=== PATIENT | female | born 1980 | race Caucasian/White ===

== ENCOUNTER → 2019-04-03 13:09 | Outpatient (CLI) | payer OTHER, SELFPAY ==
[2019-04-06 12:42] LABS: HPV APTIMA, High Risk Negative (Negative)
== END ==
PROVIDERS: Family Provider Internal Medicine; PCP Internal Medicine; Visit Provider Obstetrics & Gynecology
DX: Z12.4 Encounter for screening for malignant neoplasm of cervix (principal)
CPT/HCPCS: 87624; 88175; G0145

== ENCOUNTER 2019-09-05 14:54 | Emergency (ER) | payer OTHER, SELFPAY ==
[2019-09-05 14:55] VITALS: BP 160/85; PULSE 82; RESP 15; TEMP 37.1; O2SAT 100; BMI 24.3
--- NOTE | 2019-09-05 15:21 | CT_ITS ---
STUDY: CT ABDOMEN AND PELVIS WITH CONTRAST REASON FOR EXAM: Female, 39 years old. Right sided abdominal pain for 7 days. History of ovarian tumor removal, gastric bypass and cholecystectomy. RADIATION DOSAGE (If Supplied By Facility): CTDIvol = ( 10.9 ) mGy, DLP = ( 633.11 ) mGycm TECHNIQUE: Transaxial images were obtained from the dome of the diaphragm to the symphysis pubis without oral contrast. IV 100mL Isovue-300 was administered. Sagittal and coronal images were reconstructed. Individualized dose optimization techniques were used for this CT. COMPARISON: August 31, 2015. FINDINGS: The visualized lung bases are unremarkable. The visualized portions of the heart are within normal limits. Normal liver. There are surgical clips in the gallbladder fossa consistent with a prior cholecystectomy. There is a benign calcified granuloma of the spleen. Normal pancreas. Normal bilateral adrenal glands. Normal right kidney. There is a large cyst in the lower pole of the left kidney measuring 6.8 x 6.0 x 7.7 cm in size. There is no adjacent 3.3 x 3.0 x 2.8 cm cyst. Left kidney is otherwise unremarkable. Evidence of gastric bypass surgery. Normal small intestine. Normal colon. The appendix is visualized and appears normal. Normal abdominal aorta. Normal inferior vena cava. Normal retroperitoneum. Normal urinary bladder. The uterus is anteverted and tilted to the left. There is a tubal ligation clip on the right. There is a 1.6 cm right ovarian cyst. Left ovary is not seen. There is minimal free fluid in posterior cul-de-sac. There is no pelvic lymphadenopathy. No free air is seen within the peritoneal cavity. Normal abdominal wall. There is flattening of the lumbar lordosis with minimal endplate spondylosis. CT/Abdomen/Pelvis W IV Cont ONLY IMPRESSION: 1. Gastric bypass surgery not seen on previous study. 2. Right ovarian cyst. The left ovary is no longer seen. 3. Minimal free fluid in the posterior caudal sac thought to be physiologic. There is resolution of the diffuse ascites seen on the prior exam. 4. Stable left renal cyst. 5. Stable splenic calcified granulomata. 6. No acute intra-abdominal process or other major interval change. Electronically Signed: Merlin Lindsey DO at 16:46 EST Tel [phone], Service support ,
--- NOTE | 2019-09-05 15:22 | ED.VIS.GEN ---
History of Present Illness Chief Complaint: Abd Pain Informant: Patient Narrative: Patient presents the emergency department with right-sided abdominal pain. Symptoms have been intermittent since last weekend. She states that when it comes it is a sharp burning pain. She notes radiation to her back. She notes nausea but no vomiting. No change in bowel movements. She notes the urine has been darker than normal. 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 She states she is concerned for kidney stones. She denies any weight loss weight gain. No fevers. No dysuria or frequency. She denies any rashes. Pain is not exacerbated by walking or movement. She states the pain seems to have a mind of its own in terms of its coming and going. For the past several hours however it is been more constant. She called her doctor but cannot be seen until next week. Past Medical History - Allergies and Home Meds Allergies/Adverse Reactions: Allergies No Known Allergies Allergy (Verified 09/05/19 14:57) Primary Care Physician: Amber Barnett [NON-STAFF] - Smoking Status: Former smoker Review of Systems General: Denies: Chills, Fever, Sweats Eyes: Denies: Visual changes - bilaterally, Diplopia ENT: Denies: Rhinorrhea, Sore throat Cardiovascular: Denies: Chest pain, Palpitations Respiratory: Denies: Dyspnea, Cough, Dyspnea on exertion Gastrointestinal: Reports: Abdominal pain, Nausea. Denies: Vomiting, Diarrhea, Constipation, Melena, Hematochezia Genitourinary: Denies: Dysuria, Hematuria, Frequency Musculoskeletal: Denies: Myalgias, Arthralgias, Neck pain, Back pain, Swelling, Extremity Pain Skin: Denies: Rash, Abscess, Abrasions, Wounds Neurological: Denies: Headache, Weakness, Numbness Physical Exam Vital Signs/Narrative: Vital Signs Temp Pulse Resp BP Pulse Ox 09/05/19 14:55 98.7 F 82 15 160/85 H 100 Inital Vital Signs reviewed: Yes General: Well nourished, Well developed, No Acute Distress Head: Normocephalic, Atraumatic Eyes: Perrl, EOMI ENT: Moist mucous membranes, No rhinorrhea Neck: Supple, Nontender Cardiovascular: Regular rate, Regular rhythm, No murmurs Respiratory: No distress, CTA bilaterally, Chest nontender Abdomen: Soft, Nontender, Nondistended, Normal bowel sounds, Tender - Mild tenderness to palpation in the right side of the abdomen. Skin exam appears normal - specifically no vesicular rashes seen. Back: Nontender, Normal Inspection Extremities: Nontender, No edema Skin: Normal color, No rash Neurological: Alert, Oriented x3, Cranial nerves II-XII grossly intact, Normal Strength, Normal Sensation Psychological: Normal affect, Normal Mood Diagnostic/Tx/Re-eval - Medical Decision Making Patient's blood and urine testing was normal. CT the abdomen pelvis reveals a right ovarian cyst. Nonvisualization of the left ovary. There is some minimal free fluid in the cul-de-sac thought to possibly be physiologic. There is stable left renal cyst. Given the patient's history and her findings a pelvic ultrasound was obtained to better characterize the right ovarian cyst and to ensure ovarian blood flow. This demonstrated 2 cyst on the right ovary. 1.4 x 1.4 x 1 cm and 1.9 x 1.7 x 1.7 cm. No pelvic free fluid. Noted minimal internal debris. Normal arterial and venous vascularity. Patient will be discharged home with instructions to follow-up with [facility]. Return if worsening or concerns. ED Disposition - Plan for ED Patient: Disposition: Home or Assisted Living Diagnosis: Ovarian cyst Instructions: Ovarian Cyst Prescriptions: Ibuprofen [Motrin] 800 mg PO TID PRN PRN #20 tab PRN Reason: Pain Prescription Printed Hydrocodone Bitart/Apap 5-325 [[place] 5MG-325MG] 1 tab PO Q6H PRN PRN 3 Days #10 tab PRN Reason: Pain Prescription Printed Referrals: Estefany Bernstein MD [STAFF PHYSICIAN] - (call to arrange follow up)
[2019-09-05 15:44] LABS: Mucous, Urine 0 SEEN /hpf (<or=2+); Red Blood Cells-Urine 0 SEEN /hpf (0-5)
[2019-09-05 16:00] LABS: Absolute Lymphocyte Count 2.09 X10^3/uL (0.83-4.51); Absolute Neutrophil Count 4.6 X10^3/uL (2.0-7.7); Basophil# 0.01 X10^3/uL; Basophil% 0.1 % (0-1); Eosinophil# 0.02 X10^3/uL; Eosinophils% 0.3 % (0-5); Hematocrit 42.6 % (37-47); Hemoglobin 14.4 g/dL (12.0-15.0); Lymphocyte # 2.09 X10^3/ul (4.0); Mean Corp Hgb Conc 33.8 g/dL (32-36); Mean Corpuscular Hgb 30.3 pg (27.0-32.0); Mean Corpuscular Volume 89.7 fL (81-99); Monocyte# 0.42 X10^3/uL; Monocyte% 5.8 % (0-10); NRBC Flagged by Analyzer 0 % (0-5); Neutrophil # 4.64 X10^3/uL (2.7-7.7); Neutrophil % 64.5 % (47-70); Platelet Count 225 K/mm3 (150-450); RBC Distribution Width CV 11.9 % (11.6-14.6); RBC Distribution Width SD 38.9 fl (35.1-43.9); Red Blood Count 4.75 M/mm3 (4.2-5.4); White Blood Count 7.2 K/mm3 (4.4-11.0)
[2019-09-05] MEDS: Ondansetron 4 MG/2 ML Vial IV (16:00)
[2019-09-05] MEDS: Ketorolac 30 MG/ML Syringe IV (16:00)
[2019-09-05 16:05] LABS: Internal QC Validated? YES +Cl - CLEAR BKGD; Pregnancy, Urine Negative Negative
[2019-09-05 16:09] LABS: Color, Urine Yellow (Yellow); Glucose, Dipstick Normal (Normal); Ketone-Dipstick Negative (Negative); Leukocyte Esterase-Dipstick 25 /ul (Negative); Nitrite-Dipstick Negative (Negative); Occult Blood-Urine Negative /ul (Negative); Protein-Dipstick Negative (Negative); Urine Bilirubin Dipstick Negative (Negative); Urine Clarity Sl. Cloudy (Clear); Urine Urobilinogen Normal (Normal)
[2019-09-05 16:16] LABS: AST(SGOT) 11 U/L (15-37); Alanine Aminotransfer ALT/SGPT 22 U/L (13-56); Alkaline Phosphatase 103 U/L (45-117); Anion Gap 6 (5-15); BUN 16 mg/dL (7-18); BUN/Creat Ratio 19.3 RATIO (10-20); Calcium,Total 9.1 mg/dL (8.5-10.1); Chloride 107 mmol/L (98-107); Creatinine, Serum 0.83 mg/dL (0.55-1.02); EST Glomerular Filtration Rate 80 mL/min (>60); Est Glom Filt Rate - Afr Amer 97 mL/min (>60); Globulin 3.9 g/dL (2.2-4.2); Glucose 84 mg/dL (74-106); Lipase 393 U/L (73-393); Potassium 3.9 mmol/L (3.5-5.1); Protein, Total 7.9 g/dL (6.4-8.2); Sodium Level 140 mmol/L (136-145)
[2019-09-05 16:18] LABS: Bacteria 1+ /hpf (None Seen); Squamous Epithelial Cells - UA 5-10 SEEN /hpf (5-10); White Blood Cells 0-5 SEEN /hpf (0-5)
--- NOTE | 2019-09-05 17:15 | US_ITS ---
STUDY: ULTRASOUND OF THE FEMALE PELVIS - COMPLETE REASON FOR EXAM: Female, 39 years old. Moderate right lower quadrant pain for one week. LMP: August 22, 2019. TECHNIQUE: Transvaginal TECHNICAL QUALITY: Adequate. COMPARISON: None. FINDINGS: The uterus is anteverted and is in a midline position. The uterus measures 8.5 x 6.4 x 4.9 cm. Normal uterine cervix. The endometrium measures 13 mm in thickness, and is hyperechoic. There is no demonstrated endometrial mass. There is no demonstrated myometrial mass. I.U.D. - The patient does not have an I.U.D. The right ovary is visualized. The right ovary measures 2.8 x 2.7 x 1.8 cm. There are 2 cysts measuring 1.4 x 1.4 x 1.0 cm and 1.9 x 1.7 x 1.7 cm. There is minimal internal debris. There is no visualized right adnexal mass or complex lesion. There is normal arterial and normal venous vascularity. The left ovary is absent consistent with surgical resection.. There is no fluid in the cul-de-sac. Polycystic ovary disease: No. US/Transvaginal Non- IMPRESSION: 1. Prominent endometrium. Correlate with patient''s menstrual cycle. Uterus is otherwise unremarkable. 2. Absent left ovary. 3. Right ovarian cysts. Electronically Signed: Merlin Lindsey DO at 17:54 EST Tel [phone], Service support ,
[2019-09-05 18:28] VITALS: PULSE 68; RESP 16; O2SAT 98
== END 2019-09-05 18:29 | disposition home or self-care (01) ==
PROVIDERS: Emergency Provider Emergency Medicine; PCP Internal Medicine
DX: N83.201 Unspecified ovarian cyst, right side (principal); N28.1 Cyst of kidney, acquired; Z87.891 Personal history of nicotine dependence; Z90.49 Acquired absence of other specified parts of digestive tract; Z98.84 Bariatric surgery status
CPT/HCPCS: 74177; 76830; 80053; 81001; 81025; 83690; 85025; 93976; 96374; 96375; 99283; Q9967; A4216; J2405

== ENCOUNTER → 2021-03-16 07:09 | Outpatient (CLI) | payer OTHER, SELFPAY ==
--- NOTE | 2021-03-16 07:38 | MRI_ITS ---
STUDY: MRI RIGHT KNEE REASON FOR EXAM: Female, 40 years old. Medial pain. TECHNIQUE: Standardized fat and water weighted pulse sequences were obtained in all 3 orthogonal planes. COMPARISON: None. FINDINGS: Deep chondral fissure of the patellar apex (axial image 12 series 2). Lateral compartment articular cartilage preserved. Medial compartment grade grade 2/3 cartilage loss. No acute fracture, dislocation or bone destruction. Lateral meniscus intact. Medial meniscus intact. Mild anterior cruciate ligament degeneration without tear. Normal posterior cruciate ligament. Trace joint effusion. No popliteal cyst. No significant soft tissue swelling. Mild quadriceps and Hoffa''s fat pad edema. Normal medial collateral ligamentous complex (MCL). Normal distal semimembranosus, gracilis and semitendinosus tendons. Normal proximal tibiofibular articulation. Normal lateral collateral (fibular) ligament. Normal popliteus tendon. Normal biceps femoris tendon. Normal medial and lateral patellar retinaculum. Increased TT-TG distance measuring 20 mm. Normal quadriceps tendon. Normal patellar tendon. MRI/Lower Ext Joint Only (Routine) IMPRESSION: Mild ACL degeneration without tear Medial compartment mild/moderate cartilage loss Patellar apex deep chondral fissure Mild quadriceps and Hoffa''s fat pad edema with increased TT-TG distance (potential maltracking) Trace joint effusion Electronically Signed: Karl Bear DO at 12:45 EDT Tel , Service support ,
== END ==
PROVIDERS: PCP Internal Medicine; Referring Provider Physician Assistant; Visit Provider Physician Assistant
DX: M25.561 Pain in right knee (principal)
CPT/HCPCS: 73721

== ENCOUNTER → 2022-04-23 | Outpatient (CLI) | payer OTHER, SELFPAY ==
[2022-04-30 19:13] LABS: HPV APTIMA, High Risk Negative (Negative)
== END | disposition home or self-care (01) ==
LOC: LABSPEC 09:38
PROVIDERS: PCP Internal Medicine; Visit Provider Student in an Organized Health Care Education/Training Program
DX: Z12.4 Encounter for screening for malignant neoplasm of cervix (principal)
CPT/HCPCS: 87624; 88175; G0145

== ENCOUNTER → 2024-03-14 | Outpatient (CLI) | payer OTHER, SELFPAY ==
--- NOTE | 2024-03-14 15:19 | US_ITS ---
INDICATION: PAIN EXAMINATION: Ultrasound US Pelvis Non OB Complete With Transvaginal Imaging TECHNIQUE: Transabdominal and transvaginal pelvic ultrasound was performed. Grayscale, spectral waveform, and color flow Doppler evaluation of the adnexa. COMPARISON: None. FINDINGS: UTERUS: Anteverted. The uterus measures measures 8.4 cm in length.. There is no uterine mass. The endometrial stripe measures 7 mm in AP diameter which is within normal limits. There is a masslike echogenic focus in the cervix measuring 0.9 x 0.7 x 0.6 cm. RIGHT OVARY: Measures 3.1 x 2.2 x 1.4 cm. Non-enlarged, normal echogenicity. There is normal arterial inflow and venous outflow present in the right ovary. LEFT OVARY: Surgically absent. FREE FLUID: None. US/Pelvic w/ Transvaginal IMPRESSION: 1 cm masslike echogenic focus in the cervix is indeterminate. One possible etiology is a fibroid. Consider MR Pelvis w/ and w/out contrast for further evaluation. Electronically Signed: Neto Carty MD at 20:50 EDT ,
== END | disposition home or self-care (01) ==
LOC: US 15:16
PROVIDERS: PCP Internal Medicine; Referring Provider Internal Medicine; Visit Provider Internal Medicine
DX: R10.2 Pelvic and perineal pain (principal)
CPT/HCPCS: 76830; 76856